=== PATIENT | male | born 1970 | race Caucasian/White ===

== ENCOUNTER 2020-04-01 17:24 | Inpatient (IN) ==
[2020-04-01] MEDS ORDERED: SODIUM CHLORIDE 0.9% 1000ML 1,000 ML IV SCH ×2 (18:00→21:15)
--- NOTE | 2020-04-01 18:10 | Emergency Department Note ---
History of Present Illness General Chief complaint: Hypertension Stated complaint: CHEST PAIN, HIGH BP Time Seen by Provider: 04/01/20 17:42 Source: patient Mode of arrival: ambulatory Limitations: no limitations History of Present Illness Provider complaint: chest pain, hypertension Onset (ago): day(s) 1 Location: chest Radiation: non-radiation Severity: moderate Pain Consistency: + constant Maximum Pain Intensity: 3 Current Pain Intensity: 3 Quality: + constant Relieved By: + none Exacerbated By: + none Associated symptoms: + chest pain and + nausea/vomiting; no cough, no loss of appetite and no shortness of breath Treatments prior to arrival: none This is a 49-year-old male presents the emergency department with concern for chest pain as well as hypertension. Patient denies any prior diagnosis of h ypertension, denies taking any medications for high blood pressure at this time. Patient states he began noticing chest pain yesterday, which was persistent all day today. Patient states he has had chest pain intermittently in the past, although it typically only lasts an hour or so. Patient states last night he did have some accompanying nausea, he denies any recent trouble breathing or cough. Patient denies any URI symptoms or recent known sick contact including any exposure to Covid. Patient states he is a diabetic, states he has had some difficulty controlling his blood sugar readings. Patient denies any trauma or change in activity. Patient states the pain is slightly worse when he is laying on his chest and abdomen. Patient denies any change with exertion. Patient denies any accompanying episodes of diaphoresis. Patient denies any lower extremity edema, difficulty urinating, or change in bowel movements. Patient denies any family history of high blood pressure. Patient denies any recent change in medication. Pt seen during a time of high acuity and national emergency pandemic while wearing PPE. Home Medications Medication Instructions Recorded Confirmed Type Antibiotic Eye Drops 1 drp OPHTHALMIC (EYE) Q3H 04/01/20 04/01/20 History Mulitiple Suppliments 1 dose PO DAILY 04/01/20 04/01/20 History glimepiride 0 mg PO DAILY 04/01/20 04/01/20 History Allergies Allergy/AdvReac Type Severity Reaction Status Date / Time metformin Allergy Severe SEVERE Verified 04/01/20 18:10 DIARRHEA Past Med/Surg History Surgical History No pertinent past surgical history Family History Father Prostate cancer Social History Smoking Status: Never smoker Hx Alcohol Use: Yes marital status: Single current occupational status: employed Feels Safe at Home: Yes Review of Systems See HPI for pertinent positives & negatives. and A total of 10 systems reviewed and were otherwise negative Physical Exam Vital Signs Vital Signs - 24 hr 04/01/20 17:35 04/01/20 17:44 04/01/20 18:00 Temperature 36.4 C L Temperature Source Oral Pulse Rate 94 H 88 86 Pulse Rate from SpO2 Sensor Pulse Rhythm Regular Pulse Strength Normal Respiratory Rate 18 16 16 Respiratory Effort / Characteristics Non-Labored Spontaneous Respiratory Depth Normal Respiratory Pattern Regular Blood Pressure 172/115 H 161/88 H 154/93 H Blood Pressure Mean 134 112 113 Blood Pressure Position Sitting Pulse Oximetry 96 Oxygen Delivery Method Room Air Sepsis Recent Fever Within 48 Hours No Sepsis New/Unexplained Change in Mental Status N/A Sepsis Action Taken by Nursing No Action Required 04/01/20 18:30 04/01/20 19:00 04/01/20 19:27 Temperature Temperature Source Pulse Rate 86 80 91 H Pulse Rate from SpO2 Sensor 87 81 92 H Pulse Rhythm Pulse Strength Respiratory Rate 26 H 26 H 19 Respiratory Effort / Characteristics Respiratory Depth Respiratory Pattern Blood Pressure 172/93 H 147/97 H 172/101 H Blood Pressure Mean 119 113 124 Blood Pressure Position Pulse Oximetry 95 96 96 Oxygen Delivery Method Sepsis Recent Fever Within 48 Hours Sepsis New/Unexplained Change in Mental Status Sepsis Action Taken by Nursing 04/01/20 19:30 04/01/20 19:40 04/01/20 19:46 Temperature Temperature Source Pulse Rate 93 H 93 H 88 Pulse Rate from SpO2 Sensor 94 H Pulse Rhythm Pulse Strength Respiratory Rate 14 18 Respiratory Effort / Characteristics Respiratory Depth Respiratory Pattern Blood Pressure 165/103 H 187/111 H 187/111 H Blood Pressure Mean 123 136 Blood Pressure Position Pulse Oximetry 97 Oxygen Delivery Method Sepsis Recent Fever Within 48 Hours Sepsis New/Unexplained Change in Mental Status Sepsis Action Taken by Nursing 04/01/20 19:50 Temperature Temperature Source Pulse Rate 91 H Pulse Rate from SpO2 Sensor 90 Pulse Rhythm Pulse Strength Respiratory Rate 22 Respiratory Effort / Characteristics Respiratory Depth Respiratory Pattern Blood Pressure 179/108 H Blood Pressure Mean 131 Blood Pressure Position Pulse Oximetry 97 Oxygen Delivery Method Sepsis Recent Fever Within 48 Hours Sepsis New/Unexplained Change in Mental Status Sepsis Action Taken by Nursing GENERAL: alert, well appearing, well nourished, no distress, non-toxic, obese EYE EXAM: normal conjunctiva, PERRL and EOM's grossly intact OROPHARYNX: no exudate, no erythema, lips, buccal mucosa, and tongue normal and mucous membranes are moist NECK: supple, no nuchal rigidity, no adenopathy, non-tender LUNGS: Clear to auscultation. Normal chest wall mechanics, no w/r/r HEART: no murmurs, S1 normal and S2 normal, no reproducible chest wall tenderness with palpation ABDOMEN: abdomen soft, non-tender, normo-active bowel sounds, no masses, no rebound or guarding. BACK: Back is symmetrical on inspection and there is no deformity, no midline tenderness, no CVA tenderness. SKIN: no rashes and no bruising UPPER EXTREMITIES: upper extremities are grossly normal. FROM, nml pulses b/l. LOWER EXTREMITIES: No pitting edema. FROM, nml pulses b/l. NEURO EXAM: Normal sensorium, cranial nerves II-XII grossly intact, normal speech, no gross weakness of arms, no gross weakness of legs. Gross sensation intact. Course Course 1907: Patient updated on results. Patient states he is still having some mild pain although it is improved. 1917: Case discussed with Dr. Sánchez, interventional cardiology. Will make patient a heart alert. Would like heparin 5000 bolus. 1921: Patient updated on plan. Administered Medications Sodium Chloride (Nss 1000ml) 1,000 mls @ 250 mls/hr IV .Q4H HERBERT Stop: 05/01/20 17:59 Last Admin: 04/01/20 18:29 Dose: 250 mls/hr Documented by: [id number] Morphine Sulfate (Morphine Sulfate 2 Mg/Ml Carp) 2 mg IV Q2H PRN PRN Reason: Pain Stop: 04/15/20 19:16 Last Admin: 04/01/20 19:30 Dose: 2 mg Documented by: [id number] Discontinued Medications Famotidine (Famotidine 20mg/5ml Iv Push) 20 mg IV ONE STA Stop: 04/01/20 18:12 Last Admin: 04/01/20 18:30 Dose: 20 mg Documented by: [id number] Fentanyl Citrate (Fentanyl Citrate 100 Mcg/2 Ml Vial) Confirm Administered Dose 100 mcg .ROUTE .STK-MED ONE Stop: 04/01/20 19:51 Last Increment: 04/01/20 20:56 Dose: 50 mcg Documented by: [id number] Heparin Sodium (Porcine) (Heparin Sod (Porcine) 1000 Unit/Ml 10 Ml Vial) 5,000 units IV ONE ONE Stop: 04/01/20 19:21 Last Admin: 04/01/20 19:30 Dose: 5,000 units Documented by: [id number] Cosigned by: [id number] Heparin Sodium (Porcine) (Heparin (Porcine) 1000 Unit/Ml 10 Ml (Boiler Erector Use Only)) Confirm Administered Dose 10,000 units .ROUTE .STK-MED ONE Stop: 04/01/20 19:51 Last Admin: 04/01/20 20:50 Dose: 10,000 units Documented by: [id number] Heparin Sodium (Porcine) (Heparin (Porcine) 1000 Unit/Ml 10 Ml (Boiler Erector Use Only)) Confirm Administered Dose 10,000 units .ROUTE .STK-MED ONE Stop: 04/01/20 20:51 Last Admin: 04/01/20 20:56 Dose: 1,000 units Documented by: [id number] Heparin Sodium/Sodium Chloride (Heparin In Nss Infusion 1000 Unit/500 Ml (2 U/Ml) Bag) Confirm Administered Dose 3,000 units IV .STK-MED ONE Stop: 04/01/20 19:52 Last Admin: 04/01/20 20:50 Dose: 3,000 units Documented by: [id number] Acetaminophen (Ofirmev) 1,000 mg in 100 mls @ 400 mls/hr IV NOW STA Stop: 04/01/20 18:25 Last Infusion: 04/01/20 18:50 Dose: 0 mls/hr Documented by: [id number] Admin: 04/01/20 18:29 Dose: 400 mls/hr Documented by: [id number] Metoprolol Tartrate (Metoprolol Tartrate 1 Mg/Ml Vial) Confirm Administered Dose 5 mg IV .STK-MED ONE Stop: 04/01/20 19:46 Last Admin: 04/01/20 19:46 Dose: 5 mg Documented by: [id number] Midazolam HCl (Midazolam Hcl 1 Mg/Ml 2ml Vial) Confirm Administered Dose 2 mg .ROUTE .STK-MED ONE Stop: 04/01/20 19:52 Last Admin: 04/01/20 20:50 Dose: 2 mg Documented by: [id number] Nicardipine HCl (Nicardipine Hcl Inj 2.5 Mg/Ml 10 Ml Amp) Confirm Administered Dose 25 mg .ROUTE .STK-MED ONE Stop: 04/01/20 19:51 Last Admin: 04/01/20 20:50 Dose: 25 mg Documented by: [id number] Nitroglycerin (Nitroglycerin 2% Ointment 30gm Tube) 1 inch EXT NOW STA Stop: 04/01/20 18:12 Last Admin: 04/01/20 18:29 Dose: 1 inch Documented by: [id number] Nitroglycerin/Dextrose (Nitroglycerin/D5w 100mcg/Ml 20ml Syr) Confirm Administered Dose 2,000 mcg .ROUTE .STK-MED ONE Stop: 04/01/20 19:52 Last Admin: 04/01/20 20:50 Dose: 2,000 mcg Documented by: [id number] Critical Care Time Critical Care Time: Yes Total Critical Care Time: 41 Critical care of 41 min performed to assess and manage high likelihood of life-threatening ACS, involving labs and imaging performed with assessment to evaluate ACS diagnosis with frequent reassessment. This time includes bedside time, treatment discussions with patient/family/consultants, documentation time and excludes procedure time. Medical Decision Making Differential Diagnosis Differential diagnoses includes but is not limited to acute coronary syndrome, myocardial infarction, pericarditis, pulmonary embolus, aortic dissection, pneumonia, pneumothorax, musculoskeletal, shingles, esophageal. Medical Records Attestation: I reviewed the patient's medical records. Home Medications Current Medication List: was personally reviewed by me Laboratory Data Attestation: I reviewed the patient's lab results. Result diagrams: 04/01/20 18:18 04/01/20 18:18 Lab Results 04/01/20 04/01/20 04/01/20 Range/Units 18:18 18:18 18:18 WBC 14.31 H (4.8-10.8) K/uL RBC 5.37 (4.7-6.1) M/uL Hgb 16.4 (14.0-18.0) g/dL Hct 46.5 (42-52) % MCV 86.6 (80-100) fL MCH 30.5 (25-34) pg MCHC 35.3 (32-36) g/dL RDW Std Deviation 40.9 (36.4-46.3) fL RDW Coeff of Anand 12.9 (11.5-14.5) % Plt Count 338 (130-400) K/uL MPV 9.8 (7.4-10.4) fL Immature Gran % (Auto) 0.4 % Neut % (Auto) 68.3 % Lymph % (Auto) 20.3 % Grainger % (Auto) 8.5 % Eos % (Auto) 2.0 % Baso % (Auto) 0.5 % Neut # (Auto) 9.77 H (1.4-6.5) K/uL Lymph # (Auto) 2.91 (1.2-3.4) K/uL Grainger # (Auto) 1.21 H (0.11-0.59) K/uL Eos # (Auto) 0.29 (0-0.5) K/uL Baso # (Auto) 0.07 (0-0.2) K/uL Immature Gran # (Auto) 0.06 H (0.00-0.02) K/uL PT 10.9 (9.0-12.0) Seconds INR 1.0 (0.9-1.1) D-Dimer < 190 (0-500) ug/L FEU Sodium 137 (136-145) mmol/L Potassium 4.5 (3.5-5.1) mmol/L Chloride 103 (98-107) mmol/L Carbon Dioxide 28 (21-32) mmol/L Anion Gap 6.0 (3-11) BUN 15 (7-18) mg/dl Creatinine 0.84 (0.6-1.4) mg/dl Est Cr Clr Drug Dosing 137.0 ml/min Est GFR ( Amer) 117.5 Est GFR (Non-Af Amer) 101.4 BUN/Creatinine Ratio 17.6 (10-20) Glucose 253 H (70-99) mg/dl Calcium 9.0 (8.5-10.1) mg/dl Magnesium 2.1 (1.8-2.4) mg/dl Total Bilirubin 0.8 (0.2-1) mg/dl AST 124 H (15-37) U/L ALT 49 (12-78) U/L Alkaline Phosphatase 101 (45-117) U/L Troponin I 35.400 H* (0-0.045) ng/ml NT-Pro-B Natriuret Pep 594 (0-900) pg/ml Total Protein 7.6 (6.4-8.2) gm/dl Albumin 4.1 (3.4-5.0) gm/dl Globulin 3.5 (2.5-4.0) gm/dl Albumin/Globulin Ratio 1.2 (0.9-2) Triglycerides 542 H (0-150) mg/dl Cholesterol 207 H (0-200) mg/dl LDL Cholesterol, Calc mg/dl VLDL Cholesterol, Calc mg/dl HDL Cholesterol 29 mg/dl Cholesterol/HDL Ratio 7 Lipase 98 (73-393) U/L TSH 1.740 (0.300-4.500) uIu/ml Specimen Hemolysis COVID-19 Eval Order SARS-CoV-2, RNA, NAAT (NEGATIVE) 04/01/20 04/01/20 Range/Units 19:34 19:34 WBC (4.8-10.8) K/uL RBC (4.7-6.1) M/uL Hgb (14.0-18.0) g/dL Hct (42-52) % MCV (80-100) fL MCH (25-34) pg MCHC (32-36) g/dL RDW Std Deviation (36.4-46.3) fL RDW Coeff of Anand (11.5-14.5) % Plt Count (130-400) K/uL MPV (7.4-10.4) fL Immature Gran % (Auto) % Neut % (Auto) % Lymph % (Auto) % Grainger % (Auto) % Eos % (Auto) % Baso % (Auto) % Neut # (Auto) (1.4-6.5) K/uL Lymph # (Auto) (1.2-3.4) K/uL Grainger # (Auto) (0.11-0.59) K/uL Eos # (Auto) (0-0.5) K/uL Baso # (Auto) (0-0.2) K/uL Immature Gran # (Auto) (0.00-0.02) K/uL PT (9.0-12.0) Seconds INR (0.9-1.1) D-Dimer (0-500) ug/L FEU Sodium (136-145) mmol/L Potassium (3.5-5.1) mmol/L Chloride (98-107) mmol/L Carbon Dioxide (21-32) mmol/L Anion Gap (3-11) BUN (7-18) mg/dl Creatinine (0.6-1.4) mg/dl Est Cr Clr Drug Dosing ml/min Est GFR ( Amer) Est GFR (Non-Af Amer) BUN/Creatinine Ratio (10-20) Glucose (70-99) mg/dl Calcium (8.5-10.1) mg/dl Magnesium (1.8-2.4) mg/dl Total Bilirubin (0.2-1) mg/dl AST (15-37) U/L ALT (12-78) U/L Alkaline Phosphatase (45-117) U/L Troponin I (0-0.045) ng/ml NT-Pro-B Natriuret Pep (0-900) pg/ml Total Protein (6.4-8.2) gm/dl Albumin (3.4-5.0) gm/dl Globulin (2.5-4.0) gm/dl Albumin/Globulin Ratio (0.9-2) Triglycerides (0-150) mg/dl Cholesterol (0-200) mg/dl LDL Cholesterol, Calc mg/dl VLDL Cholesterol, Calc mg/dl HDL Cholesterol mg/dl Cholesterol/HDL Ratio Lipase (73-393) U/L TSH (0.300-4.500) uIu/ml Specimen Hemolysis COVID-19 Eval Order Covid19 [facility] SARS-CoV-2, RNA, NAAT NEGATIVE (NEGATIVE) Imaging Data Radiologist's Impression: XR chest 1V portable HISTORY: 49 years-old Male chest pain acute atypical chest pain COMPARISON: None TECHNIQUE: Portable AP view of the chest FINDINGS: Cardiac silhouette is enlarged. No pneumothorax, large pleural effusion or overt pulmonary edema. No airspace consolidation typical for pneumonia. Minimal linear bibasilar densities. Bones appear grossly intact. IMPRESSION: Cardiomegaly with minimal bibasilar atelectasis. ACT 112: Negative or not required by law. The above report was generated using voice recognition software. It may contain grammatical, syntax or spelling errors. Electronically signed by: Ángel Solitario M.D. 04/01/2020 7:05 PM ECG Data Attestation: I personally reviewed and interpreted this ECG as follows: Indication: + chest pain Rate (beats per minute): 89 Rhythm: + normal sinus ECG Intervals/blocks: + Normal QRS and + Normal QT ECG [place]: + Left axis deviation ECG ST segments: + ST depression (1, aVL, V2) and + ST elevation (III, aVF 1 mm) Blood Pressure Blood Pressure Findings: Elevated blood pressure Blood Pressure Disposition: further management by hospitalist KITTY Narrative This is a 49-year-old male with no prior history of coronary artery disease who presents due to concern for persistent chest pain and elevated blood pressure. Patient states he has a history of intermittent chest pain, however today he checked his blood pressure due to the persistence of pain and found a markedly elevated blood pressure reading. He contacted friend of his who suggested he come to the emergency room. Patient states he has not had any prior cardiac work-up. Patient states he is a diabetic, no prior history of hypertension. Patient's EKG here mildly abnormal although not convincing for immediate heart alert given chronicity of symptoms. Patient did not appear to be in any distre ss, was hypertensive although hemodynamically stable. Labs are drawn and sent, and I attempted to investigate for any prior EKG for comparative purposes. No old EKG could be found. Charge nurse and may be aware of an abnormal troponin level of 35. Upon discussion with the patient, after administration of Tylenol and nitro he still had some mild chest discomfort, I contacted Dr. Sánchez, interventional cardiology to discuss the case for likely emergent cardiac cath. Dr. Sánchez agreed with the plan, and a heart alert was called. Patient was given additional morphine to help with the pain. Dr. Sánchez also requested heparin bolus. Patient was made aware of all results and was in agreement with plan. Patient was found to have elevated cholesterol and triglycerides in addition, leukocytosis, as well as an elevated AST. Some of this may be related to the underlying ACS, the AST may also be related to his diabetic meds. Patient was made aware of the results, additional Boiler Erector and ICU team came to bedside on admission and preparations were made. Dr. Sánchez came to bedside as well. I also discussed the case with Dr. Doll, hospitalist in addition. An order was placed for continuous cardiac monitoring. The monitor shows a rate of 83_ with _normal sinus_ rhythm. Impression & Plan Chest pain, Hypertension, ACS (acute coronary syndrome), Hyperglycemia Discharge Plan Visit Data Chief Complaint: Hypertension Stated Complaint: CHEST PAIN, HIGH BP ED Provider: Jill Lincoln Discharge Problem: Chest pain, Hypertension, ACS (acute coronary syndrome), Hyperglycemia Patient Disposition: Still a Patient Discharge Instructions Interventions: ED Discharge Assessment Last Done: 04/01/20 20:05 Discharge Problem: Chest pain Qualifiers: Chest pain type: chest pain due to myocardial ischemia Ischemic chest pain t ype: unspecified angina pectoris type Qualified Code(s): I25.9 - Chronic ischemic heart disease, unspecified Hypertension Qualifiers: Hypertension type: essential hypertension Qualified Code(s): I10 - Essential (primary) hypertension
[2020-04-01] MEDS ORDERED: NITROGLYCERIN 2% OINTMENT 30GM TUBE EXT STA (18:11)
[2020-04-01] MEDS ORDERED: ACETAMINOPHEN 1,000 MG/100 ML VIAL IV STA (18:11)
[2020-04-01] MEDS ORDERED: FAMOTIDINE 20MG/5ML IV PUSH IV STA (18:11)
[2020-04-01 18:36] LABS: Basophils # (auto) 0.07 K/uL (0-0.2); Basophils % (auto) 0.5 %; Eosinophils # (auto) 0.29 K/uL (0-0.5); Hematocrit (blood only) 46.5 % (42-52); Hemoglobin 16.4 g/dL (14.0-18.0); Immature Granulocytes # (auto) 0.06 K/uL (0.00-0.02); Immature Granulocytes % (auto) 0.4 %; Lymphocytes # (auto) 2.91 K/uL (1.2-3.4); Lymphocytes % (auto) 20.3 %; Mean Corpuscular Hemoglobin 30.5 pg (25-34); Mean Corpuscular Hgb Conc 35.3 g/dL (32-36); Mean Corpuscular Volume 86.6 fL (80-100); Mean Platelet Volume 9.8 fL (7.4-10.4); Monocytes # (auto) 1.21 K/uL (0.11-0.59); Monocytes % (auto) 8.5 %; Neutrophils # (auto) 9.77 K/uL (1.4-6.5); Neutrophils % (auto) 68.3 %; Platelet Count 338 K/uL (130-400); RDW Coefficient of Variation 12.9 % (11.5-14.5); RDW Standard Deviation 40.9 fL (36.4-46.3); Red Blood Count 5.37 M/uL (4.7-6.1); White Blood Count 14.31 K/uL (4.8-10.8)
[2020-04-01 18:46] LABS: D Dimer < 190 ug/L FEU (0-500); Prothrombin Time 10.9 Seconds (9.0-12.0)
[2020-04-01 19:02] LABS: Albumin Level 4.1 gm/dl (3.4-5.0); BUN Creatinine Ratio 17.6 (10-20); Est GFR (African American) 117.5; Est GFR (Non-African American) 101.4; Magnesium 2.1 mg/dl (1.8-2.4); Potassium 4.5 mmol/L (3.5-5.1)
[2020-04-01 19:06] LABS: Bilirubin,Total 0.8 mg/dl (0.2-1); Globulin 3.5 gm/dl (2.5-4.0); Thyroid Stimulating Hormone 1.74 uIu/ml (0.300-4.500); Total Protein 7.6 gm/dl (6.4-8.2); Troponin I 35.4 ng/ml (0-0.045)
--- NOTE | 2020-04-01 19:06 | XRay Report ---
XR chest 1V portable HISTORY: 49 years-old Male chest pain acute atypical chest pain COMPARISON: None TECHNIQUE: Portable AP view of the chest FINDINGS: Cardiac silhouette is enlarged. No pneumothorax, large pleural effusion or overt pulmonary edema. No airspace consolidation typical for pneumonia. Minimal linear bibasilar densities. Bones appear grossl y intact. IMPRESSION: Cardiomegaly with minimal bibasilar atelectasis. ACT 112: Negative or not required by law. The above report was generated using voice recognition software. It may contain grammatical, syntax o r spelling errors. Electronically signed by: Ángel Solitario M.D. 04/01/2020 7:05 PM
[2020-04-01 19:07] LABS: Albumin Globulin Ratio 1.2 (0.9-2)
[2020-04-01] MEDS ORDERED: MoRPHine SULFATE 2 MG/ML CARP IV PRN (19:17)
[2020-04-01] MEDS ORDERED: HEPARIN SOD (PORCINE) 1000 UNIT/ML 10 ML VIAL IV ONE (19:20)
[2020-04-01] MEDS ORDERED: METOPROLOL TARTRATE 1 MG/ML VIAL IV STA (19:41)
[2020-04-01] MEDS ORDERED: MoRPHine SULFATE 4 MG/ML 1 ML CARP\\VIAL IV STA (19:42)
[2020-04-01] MEDS ORDERED: METOPROLOL TARTRATE 1 MG/ML VIAL IV ONE (19:45)
[2020-04-01] MEDS ORDERED: NSS + 20MEQ KCL 20 MEQ/1,000 ML BAG IV SCH (19:45)
[2020-04-01] MEDS ORDERED: HEPARIN (PORCINE) 1000 UNIT/ML 10 ML (CATH LAB USE ONLY) ONE ×2 (19:50→20:50)
[2020-04-01] MEDS ORDERED: niCARdipine HCL INJ 2.5 MG/ML 10 ML AMP ONE (19:50)
[2020-04-01] MEDS ORDERED: fentaNYL citrate 100 MCG/2 ML VIAL ONE (19:50)
[2020-04-01] MEDS ORDERED: NITROGLYCERIN/D5W 100MCG/ML 20ML SYR ONE (19:51)
[2020-04-01] MEDS ORDERED: MIDAZOLAM HCL 1 MG/ML 2ML VIAL ONE ×2 (19:51→20:40)
--- NOTE | 2020-04-01 20:06 | Pre Anesthesia Assessment ---
Date of Service April 01, 2020 Pre Sedation Assessment Vital Signs Temp Pulse Resp BP Pulse Ox 04/01/20 19:50 91 H 22 179/108 H 97 04/01/20 19:46 88 187/111 H 04/01/20 19:40 93 H 18 187/111 H 97 04/01/20 19:30 93 H 14 165/103 H 04/01/20 19:27 91 H 19 172/101 H 96 04/01/20 19:00 80 26 H 147/97 H 96 04/01/20 18:30 86 26 H 172/93 H 95 04/01/20 18:00 86 16 154/93 H 04/01/20 17:44 88 16 161/88 H 04/01/20 17:35 97.5 F L 94 H 18 172/115 H 96 Cardiovascular RRR, no murmur, no edema Respiratory normal respiratory effort, lungs clear to auscultation Pre-Sedation Airway Assessment Smoking Status: Never smoker Hx Sleep Apnea: No Hx Difficult Intubation: No Short, Thick Neck: No Thyromental Distance: > or= 3.5 Finger Breadths Oral Cavity: + WNL Mallampati Class: III ASA: ASA4 Procedure Planning Contraindications for Sedation: none Current Medications Reviewed: Yes Notes The planned sedation has been discussed with the patient. Informed Consent was obtained. I have identified the patient, determined the appropriateness of sedation and have assessed the patient immediately prior to the procedure. All medicine(s) and interventions are by my order.
--- NOTE | 2020-04-01 20:10 | Cardiology Consultation ---
Date of Consultation April 01, 2020 Assessment & Plan (1) Acute MO: Presentation consistent with high risk NSTEMI with active ongoing chest and recommend proceeding with emergent cardiac catheterization and likely PCI. No apparent contraindications to procedure. Discussed risks, benefits, alternatives of procedure with patient and they are willing to proceed. Given IV heparin in the ED. Further recommendations pending findings of coronary angiography. History of Present Illness History of Present Illness 49-year-old male here with acute chest pain, troponin elevation and ECG findings consistent with NSTEMI. Patient seen emergently in the ED after heart alert activated after troponin resulted at 35. No prior cardiac history. Cardiac risk factors include type 2 diabetes on oral therapy and a family history of CAD with a father who had an MO at 58. Chest pain began around 10 PM last night, 20 hours ago. Describes substernal pain with associated nausea. Noted his blood pressures were high up into the 200s. Denies similar symptoms in the past. Pain somewhat better with ibuprofen last night and was able to sleep several hours but pain has persisted all day today leading him to ED. Chest pain currently 2 out of 10 after aspirin, nitro, morphine. Hemodynamically stable. EKG showed subtle inferior ST elevations. Allergies Allergy/AdvReac Type Severity Reaction Status Date / Time metformin Allergy Severe SEVERE Verified 04/01/20 18:10 DIARRHEA Home Medications Medication Instructions Recorded Confirmed Type Antibiotic Eye Drops 1 drp OPHTHALMIC (EYE) Q3H 04/01/20 04/01/20 History Mulitiple Suppliments 1 dose PO DAILY 04/01/20 04/01/20 History glimepiride 0 mg PO DAILY 04/01/20 04/01/20 History Patient History Surgical History No pertinent past surgical history Family History Father Prostate cancer Social History Smoking Status: Never smoker Hx Alcohol Use: Yes marital status: Single current occupational status: employed Feels Safe at Home: Yes Review of Systems Review of Systems: All systems reviewed & are unremarkable except as noted in HPI & below Physical Exam Physical Exam: General: Comfortable, no acute distress HEENT: Sclerae anicteric, mucous membranes moist Lungs: Clear to auscultation bilaterally Cardiac: Regular rate and rhythm, no murmurs Abdomen: Soft, nontender Extremities: Warm, well perfused, no edema. 2+ radial pulses Skin: No rashes or lesions. Neuro: Nonfocal Psych: Alert orient x3, normal affect and mood Results & Data ([facility]) Vital Signs (Past 12 Hours) Vital Signs Temp Pulse Resp BP Pulse Ox 04/01/20 19:50 91 H 22 179/108 H 97 04/01/20 19:46 88 187/111 H 04/01/20 19:40 93 H 18 187/111 H 97 04/01/20 19:30 93 H 14 165/103 H 04/01/20 19:27 91 H 19 172/101 H 96 04/01/20 19:00 80 26 H 147/97 H 96 04/01/20 18:30 86 26 H 172/93 H 95 04/01/20 18:00 86 16 154/93 H 04/01/20 17:44 88 16 161/88 H 04/01/20 17:35 97.5 F L 94 H 18 172/115 H 96 PG Care Time/CCT Total # of Minutes Spent Total Time Spent with Patient: Total time spent is greater than 50% in coordination of care (as documented) at patient's floor/unit and/or counseling patient: Coding Level of Care Code 91373 Inpt Consult Level 5 Diagnoses Acute MO I21.9
[2020-04-01] MEDS ORDERED: CLOPIDOGREL BISULFATE 300 MG TAB ONE (21:00)
--- NOTE | 2020-04-01 21:13 | Post Anesthesia Assessment ---
Date of Service April 01, 2020 Post Sedation Assessment Vital Signs Temp Pulse Resp BP Pulse Ox 04/01/20 19:50 91 H 22 179/108 H 97 04/01/20 19:46 88 187/111 H 04/01/20 19:40 93 H 18 187/111 H 97 04/01/20 19:30 93 H 14 165/103 H 04/01/20 19:27 91 H 19 172/101 H 96 04/01/20 19:00 80 26 H 147/97 H 96 04/01/20 18:30 86 26 H 172/93 H 95 04/01/20 18:00 86 16 154/93 H 04/01/20 17:44 88 16 161/88 H 04/01/20 17:35 97.5 F L 94 H 18 172/115 H 96 Recovery Score Activity: Moves 4 extremities Respiration: Deep Breath/Cough Circulation: +/-20% PreAnes Value Consciousness: Fully Awake Oxygen Saturation: O2 needed for >90% Discharge Sedation Level of Care: Fast Track Phase II Post Sedation Plan On clinical assessment, the patient appears to have tolerated the sedation without complications. Patient is recovering as anticipated. Patient will continue to be monitored by nursing and may be discharged when sedation discharge criteria are met per below protocol. Upon Completions of procedure up to 15 minutes continue every 5 minute vital signs and the P.A.R. score; then discharge to a Phase I or Fast Track to Phase II per the following guidelines: * Discharge Patient to appropriate Phase II area if PAR is 8 or greater or return to pre- procedure baseline. The post - procedure orders will be as directed. * If PAR score is less than 8 or not return to pre-procedure baseline then patient will follow Phase I monitoring till PAR is reached for Phase II. The Phase I may be done in procedure room or may call to secure a Phase I area. * If naloxone or flumazenil are used for reversal, hold in Phase I for continued monitoring from when last reversal dose was given for a minimum of 60 minutes or longer pending the nurse and/or physician discretion of patient condition before discharge to Phase II. Please call the Sedation Physician to re-evaluate and complete post-note for discharge to Phase II area. Do NOT discharge from procedure sedation or Phase 1 until post- sedation evaluation note is complete by procedure /sedation MD Sedation Discharge Instructions to be given to the patient at discharge to home.
[2020-04-01] MEDS ORDERED: ONDANSETRON INJ 2 MG/ML 2 ML VIAL IV PRN (21:14)
[2020-04-01] MEDS ORDERED: ACETAMINOPHEN 325 MG TAB PO PRN (21:14)
[2020-04-01] MEDS ORDERED: NITROGLYCERIN SL 0.4 MG/TAB TAB SL PRN (21:14)
--- NOTE | 2020-04-01 21:44 | Cardiac Catheterization ---
[facility] Data: Machine Stitcher Cardiac Status Clinical evaluation leading to the procedure CAD Presenation: Non STEMI Anginal Classification: CCS IV Heart Failure: No Cardiogenic Shock within 24 Hours: No Cardiac Arrest within 24 Hours: No Imaging Studies Past 6 Months: No Stress Studies Past 6 Months: No Diagnostic Physicians Name: Zelalem Sánchez MD Status: Emergency Closure Device Percutaneous Entry Location: Radial Closure Device: Radial Band Recommendations: PCI without planned CABG PCI Indication: PCI for high risk Non-CHIVO Lesion Segment Name: R PAV Culprit Artery: Yes Stenosis Prior to Rx (%): 100 Chronic Total Occlusion: No IVUS: No FFR: No Pre-Procedure SALAZAR Flow: 0 Previously Treated Lesion: No Lesion Complexity: Non-High/Non-C Lesion Length (mm): 25 Thrombus Present: Yes Bifurcation Lesion: No Guidewire Across Lesion: Stenosis Post-Procedure (%): 0 Post-Procedure SALAZAR Flow: 3 Devices(s) Deployed: Yes Yes Intraprocedure Events Significant Disection: No Perforation: No Cardiac Cath Procedure Full Procedure Date April 01, 2020 Pre-Procedure Diagnosis Pre-Procedure Diagnosis: Non STEMI AUC Score AUC Score: 9 Post-Procedure Diagnosis Post-Procedure Diagnosis: Severe CAD, Successful PCI and Normal Intracardiac Pressures Procedure(s) Performed Procedure(s) Performed: Coronary Angiography, Left Heart Cath and Drug Eluting Stent Time Buyer Zelalem Sánchez MD Bridal Stylist Sales Consultant(s) Gisela Estimated Blood Loss Estimated Blood Loss: 15 Medication(s) Medication(s): Fentanyl, Heparin, Lidocaine 1%, Nicardipine, Nitroglycerin and Versed Medication(s): Ticagrelor Summary of Findings Indication: STEMI/Heart Alert Access: 6 Fr slender right radial artery Catheters: [place], JR4 guide Findings: LM -medium caliber, angiographically normal LAD -medium caliber, 50% proximal disease, 90% mid segment disease just after takeoff of first septal, distal vessel tapers to the apex without significant disease. High D1 70% ostial Circumflex -medium caliber, 40% proximal, 30-40% mid, 40% proximal large OM 3. RCA -dominant, medium caliber, 30% proximal disease, 100% acute right posterior AV branch occlusion just after takeoff of of large PDA. LVEDP -16 -- PCI -- Antithrombotic therapy: Heparin, ticagrelor Procedure: RCA cannulated with JR4 guide Whisper wire passed across occlusion into distal PLB Injection through [id number] balloon confirmed distal intraluminal position Posterior AV branch occlusion predilated with 2.0 compliant balloon Dilated lesion stented with 2.5 x 30 mm Nuevo drug-eluting stent placed just after takeoff of PDA. Stent post-dilated with 2.75 noncompliant balloon IC vasodilators administered for spasm Post procedure SALAZAR 3 flow, stent well expanded with minimal residual stenosis and no apparent cardiac complications. Arterial Closure: TR band Summary: 1. Acute 100% occlusion of right posterior AV branch immediately after takeoff of PDA 2. Severe non-culprit coronary artery disease -50% proximal LAD, 90% mid LAD. High D1 70% ostial 40% proximal, mid circumflex and proximal OM 3 3. Normal intracardiac filling pressure 4. Successful PCI of Right posterior AV branch occlusion with single drug- eluting stent (2.5 x 30 mm Al; postdilated with 2.75 NC). Recommendations: Admit to PCU for continued monitoring Loaded with ticagrelor 180 mg in Machine Stitcher Continue dual-antiplatelet therapy for at least 1 year. Trend troponins until peak, Check Echo Uptitrate beta-omer/SHANNON as BP allows High-dose statin Consult cardiac Rehab Plan for staged PCI of LAD possibly tomorrow if renal function stable Hemodynamics Rest Ao:: 147/92/123 Final Ao: 146/98/121 LV: 130/16 Recommendations Recommendations: PCI without planned CABG Specimens Specimens: None Radiation Exposure (mGy) 2762 Contrast (mls) 100 Fluids (cc crystalloids) Fluids (cc crystalloids): 85 Drains Drains: none Anesthesia moderate Procedural Complication(s) None Disposition PCU I attest to the content of the Intraoperative Record and any orders documented therein. Any exceptions are noted below. [facility] Card Cath Procedure Codes Cardiac Catheterization Procedure 1: Cardiovascular Cath Procedures: 85803 Coronaries and LHC (+/-LV) Moderate Sedation Procedure 1: Sedation/Anesthesia: 30708 Mod Sedation by the same physician;Init15 Min Child Age 5 & Up Procedure 2: Sedation/Anesthesia: 14888 Mod Sedation by the same physician; Ea Addition al15 Minutes Stenting Procedure 1: Cardiovascular Stent Procedures: 68737 Perc transluminal revascularization of acute sub/total occl, aMI PG Care Time/CCT Total # of Minutes Spent Total Time Spent with Patient: Total time spent is greater than 50% in coordination of care (as documented) at patient's floor/unit and/or counseling patient:
[2020-04-01 21:55] LABS: Basophils % (auto) 0.6 %; Eosinophils # (auto) 0.33 K/uL (0-0.5); Eosinophils % (auto) 1.8 %; Hemoglobin 14.6 g/dL (14.0-18.0); Immature Granulocytes # (auto) 0.08 K/uL (0.00-0.02); Immature Granulocytes % (auto) 0.4 %; Lymphocytes # (auto) 3.69 K/uL (1.2-3.4); Lymphocytes % (auto) 20.4 %; Mean Corpuscular Hemoglobin 29.5 pg (25-34); Mean Corpuscular Volume 86.9 fL (80-100); Mean Platelet Volume 9.7 fL (7.4-10.4); Monocytes # (auto) 1.26 K/uL (0.11-0.59); Neutrophils # (auto) 12.64 K/uL (1.4-6.5); Neutrophils % (auto) 69.8 %; Platelet Count 303 K/uL (130-400); RDW Coefficient of Variation 12.8 % (11.5-14.5); RDW Standard Deviation 40.8 fL (36.4-46.3); Red Blood Count 4.95 M/uL (4.7-6.1)
[2020-04-01] MEDS ORDERED: DC ALL PREVIOUSLY ORDERED DIABETES MEDS ONE (22:01)
[2020-04-01] MEDS ORDERED: GLUCOSE 10 TABS/TUBE PO PRN (22:01)
[2020-04-01] MEDS ORDERED: CARBOHYDRATES FOR HYPOGLYCEMIA PO PRN (22:01)
[2020-04-01] MEDS ORDERED: DEXTROSE 50% 50 ML SYRINGE IV PRN (22:01)
[2020-04-01] MEDS ORDERED: GLUCOSE 40% GEL 15 GM TUBE PO PRN (22:01)
[2020-04-01] MEDS ORDERED: GLUCAGON FOR INJ 1 MG VIAL SQ PRN (22:01)
[2020-04-01] MEDS ORDERED: POLYETHYLENE (MIRALAX) 17 GM PACK PO PRN (22:01)
--- NOTE | 2020-04-01 22:09 | History & Physical Report ---
Date of Service April 01, 2020 Assessment & Plan (1) NSTEMI (non-ST elevated myocardial infarction): 49 yo M PMHx DM2 admitted for NSTEMI now status post PCI x1. NSTEMI: -On arrival with substernal chest pain without associated radiation to arm or jaw. -Noted to have EKG without ST changes, elevated troponin to 35. Will trend serial troponins to peak. -Heart alert called, underwent cardiac catheterization by Dr. Sánchez which revealed multivessel disease, most of note 100% occlusion o right posterior AV branch immediately after takeoff of PDA, as well as severe non-culprit coronary artery disease (specifically, 90% stenosis of mid LAD). TY x1 placed at PDA takeoff. -Patient was started on SHANNON, beta-omer, high intensity statin, DAPT. -A1c with morning labs. Lipid panel performed on admission lab work showed TG 542, total cholesterol 207, LDL unable to be calculated secondary to TG level. -Echo a.m. N.p.o. starting now. -Plan for staged PCI LAD possibly tomorrow pending renal function. -Telemetry for continuous cardiac monitoring. -Cardiac rehabilitation consult placed. DM2: -History of, on glimepiride. -BSG on admission 250. A1c with morning labs, suspect inadequate control. -Hold glimepiride for now, SSI while admitted. DM2 diet when no longer NPO. HTN: -On arrival with elevated BP 170s/110s, now normotensive status post PCI and Lopressor 5 mg IV x1. -Continue lisinopril 5 mg daily, metoprolol tartrate 25 mg twice daily, titrate these up as BP allows. Leukocytosis: -Likely reactive in the setting of A. fib with RVR. -No other laboratory or exam findings suggestive of infection. -CBC in a.m. CODE STATUS: Full code FEN GI: N.p.o. for possible staged PCI tomorrow, NSS at 100 mL/hr DVT prophylaxis: Ticagrelor 90 mg twice daily Dispo: PCU telemetry for continuous cardiac monitoring, n.p.o. for possible PCI to LAD tomorrow (2) Hypertension: (3) Diabetes: (4) Leukocytosis: Admission and Anticipated Discharge Date Admission Date: April 01, 2020 History of Present Illness Chief Complaint: NSTEMI Primary Care Provider: MICHELLE Damon 49 yo M PMHx DM2 presents for chest pain. Per patient he started having aching severe chest pain at 10pm last evening, could not get comfortable, but it went away. It came back this AM and after it had not gone away after an hour he checked his BP and noted himself to have diastolic BP over 100. Because of this he decided to be evaluated in ER. In ER he was noted to have EKG without ST elevations, initial troponin 35, HTN to 170/110. He received Lopressor 5mg IV x1, nitro, high dose aspirin, and morphine x2 with significant relief (though not resolution) of his pain. Heart alert called, and taken to lab aide emergently by Dr. Sánchez. There he was noted to have 100% occlusion of right posterior AV branch immediately after takeoff of PDA, as well as severe non-culprit coronary artery disease (specifically, 90% stenosis of mid LAD). TY x1 placed at PDA takeoff, with plan for staged PCI of LAD. On my exam (which occurred prior to PCI, but after morphine and Lopressor) pat ient reported significant improvement in pain, and no complaints of SOB, sweating, abdominal pain, nausea, dizziness, headache. Allergies Allergy/AdvReac Type Severity Reaction Status Date / Time metformin Allergy Severe SEVERE Verified 04/01/20 18:10 DIARRHEA Home Medications Medication Instructions Recorded Confirmed Type Antibiotic Eye Drops 1 drp OPHTHALMIC (EYE) Q3H 04/01/20 04/01/20 History Mulitiple Suppliments 1 dose PO DAILY 04/01/20 04/01/20 History glimepiride 0 mg PO DAILY 04/01/20 04/01/20 History aspirin 81 mg PO QAM 30 Days #30 tab 04/03/20 Rx atorvastatin 80 mg PO QAM 30 Days #60 tab 04/03/20 Rx lisinopril [Zestril] 5 mg PO QAM 30 Days #30 tab 04/03/20 Rx metoprolol tartrate 25 mg PO BID 30 Days #60 tab 04/03/20 Rx nitroglycerin [Nitrostat] 0.4 mg SUBLINGUAL UD PRN 30 Days 04/03/20 Rx #30 tab ticagrelor [Brilinta] 90 mg PO BID 30 Days #60 tab 04/03/20 Rx Past Med/Surg History Surgical History No pertinent past surgical history Family History (Updated 04/01/20 @ 22:42 by Aura Ballard DO) Father Prostate cancer Heart disease Social History Smoking Status: Former smoker Cigarettes Per Day: 20; Hx Alcohol Use: Yes Alcohol type: beer and hard liquor Hx Substance Use: No Preferred Language: Serbian Communication Ability: Effective Magnetic Resonance Imaging Coordinator Required: No Beliefs That Will Affect Care: None marital status: Single Current Living Situation: Alone current occupational status: employed Feels Safe at Home: Yes Assistive Devices: None Review of Systems Review of Systems: All systems reviewed & are unremarkable except as noted in HPI & below Constitutional: no fever, no chills and no malaise Respiratory: no cough and no dyspnea Cardiovascular: + chest pain (mild improved since arrival to ER); no palpitations and no edema Gastrointestinal: no abdominal pain, no constipation and no diarrhea/loose stools Physical Exam Constitutional: WD/WN, vitals as above Eyes: PERRL, conjunctivae normal, anicteric sclerae ENMT: external ear and nose normal, oropharynx normal Neck: normal visual inspection Respiratory: normal respiratory effort, lungs clear to auscultation Cardiovascular: RRR, no murmur, no edema Gastrointestinal (Abdomen): normal bowel sounds, soft, nontender, no hepatosplenomegaly Musculoskeletal: No cyanosis or clubbing Skin: no rashes, warm and dry Neurologic: AAOx3, normal speech. PERRL. Bilateral UE, LE, and face without sensory or motor deficits. No tremor. Psychiatric: A+Ox3, euthymic affect Results & Data Results & Data ([facility]) Vital Signs (Past 12 Hours) Vital Signs Temp Pulse Pulse Resp BP BP Pulse Ox 04/01/20 21:31 36.9 C 72 18 110/74 94 04/01/20 21:26 36.9 C 75 18 129/73 94 04/01/20 19:50 91 H 22 179/108 H 97 04/01/20 19:46 88 187/111 H 04/01/20 19:40 93 H 18 187/111 H 97 04/01/20 19:30 93 H 14 165/103 H 04/01/20 19:27 91 H 19 172/101 H 96 04/01/20 19:00 80 26 H 147/97 H 96 04/01/20 18:30 86 26 H 172/93 H 95 04/01/20 18:00 86 16 154/93 H 04/01/20 17:44 88 16 161/88 H 04/01/20 17:35 36.4 C L 94 H 18 172/115 H 96 Code Status & VTE Plan VTE Prophylaxis Plan VTE Prophylaxis will be ordered: Yes Supervising Physician Co-Signing Physician Notes Attending addendum: I have physically seen this patient, have supervised the medical residents activities, and agree with the H&P unless as otherwise noted. Assessment and Plan: Non-STEMI- The patient will be admitted to telemetry for serial cardiac enzymes, serial EKG's, cardiac rhythm monitoring and a 2-D echocardiogram with Dopplers. Troponin upon admission 35 Patient made a heart alert in the ED He was taken to the Air Pollution Analyst by Dr. Sánchez with results as noted. Continue meds as ordered per cardiology Diabetes mellitus- Hold glimepiride. Placed on Accu-Cheks before meals and at bedtime with NovoLog coverage per scale Remaining orders and notations as noted Resident Activity Tracking Resident Involvement: Resident Care Provided Care Provided: Adult Hospital Medicine (1) Hypertension Hypertension type: essential hypertension Qualified Code(s): I10 - Essential (primary) hypertension
[2020-04-01 22:15] LABS: Calcium 8.4 mg/dl (8.5-10.1); Creatinine Clr Calc Pharmacy 174.4 ml/min; Est GFR (African American) 129.7; Est GFR (Non-African American) 111.9
[2020-04-01] MEDS: INSULIN ASPART 100 UNITS/ML 3 ML PEN SC SCH (22:25)
[2020-04-01] MEDS: METOPROLOL TARTRATE 25 MG TAB PO SCH (22:27)
--- NOTE | 2020-04-02 08:02 | Hospitalist Progress Note ---
Date of Service April 02, 2020 Assessment & Plan (1) Acute LA: Patient is a 49 year old male with PMHx DM2 that presented initially with chest pain of 20 hours duration that was centralized in location, found to have an elevated troponin of 35 on admission at which time a heart alert was a ctivated and patient underwent PCI x1 of his R posterior AV branch and transferred to PCU for monitoring. STEMI -Second EKG showing ST-T wave elevations of III and AVF with reciprocal change in St depression of leads I and aVL. -Troponin on admission 35 --> 60 --> 27 -In ED a heart alert was called, given Tylenol, nitro, IV morphine, and started on a heparin gtt with bolus -Patient underwent PCI x1 of R posterior AV branch on 04/01/20 -Of note patient had 50% proximal LAD, 90% mid LAD occlusion. -Plans for staged PCI of LAD later this afternoon -Echo with EF 60-65% with mild hypokinesis of mid inferior and inferolateral portions of the heart -Continue Dual-Antiplatelet therapy x1 year, ASA 81mg QD and Ticagrelor 90mg PO BID -Sublingual Nitro PRN -Morphine PRN pain -O2 PRN, patient not currently requiring -High Dose Statin Atorvastatin 80mg QAM -Metoprolol Tartrate 25mg BID -Lisinopril 5mg qAM -Will attempt to up-titrate BB and SHANNON as blood pressure allows -Lipid panel with TG 542, Total Cholesterol 207, LDL unable to calculate due to TG level. -HgbA1C 10.8% -Cardiac Rehab consult placed DM2 -Patient only on Glimepiride in outpatient setting, will hold while inpatient -Has been on Metformin and Januvia in the past and stopped both due to side effects -SSI for initial coverage -HgbA1c at 10.8% -assistant health educator assisting with patient education -Of note patient recently signing up for weight loss program and trying to be more mindful of food choices -Would want to add on further therapy outpatient, consider GLP-1 RA -If patient staying longer, will add on basal insulin while inpatient. Leukocytosis -Likely secondary to acute LA -Low suspicion for infectious cause. -Continue to monitor for signs of infectious etiology including fever, tachycardia, obvious source HTN -Lisinopril and Metoprolol as above Dispo: PCU FEN: NPO in anticipation cardiac cath later today DVT: Ticagrelor 90 BID Code: Full Admission and Anticipated Discharge Date Admission Date: April 01, 2020 Supervising Physician Co-Signing Physician Notes I personally examined the patient and verified all dugan points of history and exam, discussed case, and agree with decision making with Dr Mckeon. ongoing chest pain post cath. 11/08. conversational during this though. discussed lifestyle. notes that he's recently started "GoLo" program, but conversely as we review diet he notes that while he just started GoLo about 2 weeks ago, he denies any real changes in his eating for months. also notes erratic sugars, but has a fairly low supply of recall of these erratic situations. notes that he needs to exercise more vitals noted nad heent nc at mmm breathing unlabored no accessory muscles good effort skin no rashes no pallor or icterus EKG NSR at bedside, repeat done (actually once symptoms improved) with a little bit of recurrence of ST elevations inferior but not as pronounced, and no reciprocal changes STEMI - post cath/stenting/extensive procedures. med management, symptom control. if CP recurs - then heparin gtt metabolic syndrome (DM2, low HDL/high TG dyslipid) - extensive discussion on lifestyle/educated as best he would allow. will have to research his GoLo - concerned that it might contain stimulants that, while not causative of his CAD, could be part of the "why now" precipitating his LA time in ~440p, time out ~525p, >30mins face to face Subjective Patient examined at the bedside this morning. Patient noting that since his heart cath last night he has had minimal 1/10 on and off chest pain that he primarily noted while trying to push himself into a seated position. Currently he notes that he is not having any discomfort at all, does not feel short of breath, and is able to move from the laying to seated position without becoming short of breath. He notes 10 year pack history, but quit in 2000. Also notes that his father had an LA at age 58. He states that he feels his sugars have been fairly uncontrolled and that he has only been taking glimepiride for it. He has no other questions or concners at this time. Review of Systems Constitutional: no fever and no chills Eyes: no photophobia and no worsening vision Ear, Nose, Mouth, Throat: no dizziness Respiratory: no cough, no dyspnea, no dyspnea on exertion and no pain on inspiration Cardiovascular: + chest pain and + dyspnea on exertion; no chest pain at rest, no radiating jaw, neck or arm pain and no dyspnea Gastrointestinal: no abdominal pain, no nausea, no vomiting, no constipation and no diarrhea/loose stools Genitourinary: no dysuria Physical Exam Constitutional: WD/WN, vitals as above + obese Eyes: PERRL, conjunctivae normal, anicteric sclerae ENMT: external ear and nose normal, oropharynx normal Neck: trachea midline, no thyromegaly Respiratory: normal respiratory effort, lungs clear to auscultation Cardiovascular: Rate/Rhythm: regular rate and regular rhythm Heart Sounds: no murmur Vessels: posterior tibial pulses present, dorsalis pedis pulses present, radial pulses present and ulnar pulses present Gastrointestinal (Abdomen): normal bowel sounds, soft, nontender, no hepatosplenomegaly Skin: no rashes, warm and dry Neurologic: PERRL, EOMI, accommodation nl, no face palsy, no dysarthria Psychiatric: A+Ox3, euthymic affect Results & Data Results & Data ([facility]) Vital Signs (Past 12 Hours) Vital Signs Temp Pulse Pulse Resp BP Pulse Ox 04/02/20 05:03 36.9 C 75 18 98/66 L 93 04/02/20 00:51 73 18 97/61 L 92 04/02/20 00:15 78 18 110/75 92 04/01/20 23:35 37.1 C 75 18 105/73 93 04/01/20 23:30 73 04/01/20 23:05 75 18 104/70 96 04/01/20 21:33 77 18 125/86 97 04/01/20 21:31 36.9 C 72 18 110/74 94 04/01/20 21:26 36.9 C 75 18 129/73 94 Resident Activity Tracking Resident Involvement: Resident Care Provided Care Provided: Adult Hospital Medicine
[2020-04-02 08:11] LABS: Estimated Average Glucose 263 mg/dl; Hemoglobin A1C 10.8 % (4.5-5.6)
[2020-04-02] MEDS: METOPROLOL TARTRATE 25 MG TAB PO SCH ×2 (08:16→21:08)
[2020-04-02] MEDS: ASPIRIN 81 MG ECTAB PO SCH (08:16)
[2020-04-02] MEDS: ATORVASTATIN 40 MG TAB PO SCH (08:16)
[2020-04-02] MEDS: lisinopril 5 MG TAB PO SCH (08:16)
[2020-04-02] MEDS: TICAGRELOR 90 MG TAB PO SCH ×2 (08:17→21:08)
[2020-04-02] MEDS: INSULIN ASPART 100 UNITS/ML 3 ML PEN SC SCH ×4 (08:22→21:08)
--- NOTE | 2020-04-02 09:01 | XCELERA ---
[id number]
[2020-04-02] MEDS ORDERED: niCARdipine HCL INJ 2.5 MG/ML 10 ML AMP ONE (11:46)
[2020-04-02] MEDS ORDERED: MIDAZOLAM HCL 1 MG/ML 2ML VIAL ONE (11:46)
[2020-04-02] MEDS ORDERED: HEPARIN (PORCINE) 1000 UNIT/ML 10 ML (CATH LAB USE ONLY) ONE ×2 (11:46→13:09)
[2020-04-02] MEDS ORDERED: fentaNYL citrate 100 MCG/2 ML VIAL ONE (11:46)
[2020-04-02] MEDS ORDERED: NITROGLYCERIN/D5W 100MCG/ML 20ML SYR ONE (11:47)
--- NOTE | 2020-04-02 14:17 | Electrocardiogram Report ---
Test Reason : Blood Pressure : / mmHG Vent. Rate : 089 BPM Atrial Rate : 089 BPM P-R Int : 158 ms QRS Dur : 096 ms QT Int : 380 ms P-R-T Axes : 050 -23 013 degrees QTc Int : 462 ms Normal sinus rhythm Cannot rule out , age undetermined Abnormal ECG No previous ECGs available Confirmed by Aiden Barnard ([id number]) on 04/02/2020 2:17:25 PM Referred By: REFERRED SELF Confirmed By:Aiden Barnard
--- NOTE | 2020-04-02 14:18 | Pre Anesthesia Assessment ---
Date of Service April 02, 2020 Pre Sedation Assessment Vital Signs Temp Pulse Pulse Resp BP BP Pulse Ox 04/02/20 11:30 79 16 118/71 94 04/02/20 08:10 97.9 F 78 17 107/71 94 04/02/20 05:03 98.4 F 75 18 98/66 L 93 04/02/20 00:51 73 18 97/61 L 92 04/02/20 00:15 78 18 110/75 92 04/01/20 23:35 98.8 F 75 18 105/73 93 04/01/20 23:30 73 04/01/20 23:05 75 18 104/70 96 04/01/20 21:33 77 18 125/86 97 04/01/20 21:31 98.4 F 72 18 110/74 94 04/01/20 21:26 98.4 F 75 18 129/73 94 04/01/20 19:50 91 H 22 179/108 H 97 04/01/20 19:46 88 187/111 H 04/01/20 19:40 93 H 18 187/111 H 97 04/01/20 19:30 93 H 14 165/103 H 04/01/20 19:27 91 H 19 172/101 H 96 04/01/20 19:00 80 26 H 147/97 H 96 04/01/20 18:30 86 26 H 172/93 H 95 04/01/20 18:00 86 16 154/93 H 04/01/20 17:44 88 16 161/88 H 04/01/20 17:35 97.5 F L 94 H 18 172/115 H 96 Cardiovascular RRR, no murmur, no edema Respiratory normal respiratory effort, lungs clear to auscultation Pre-Sedation Airway Assessment Smoking Status: Former smoker Hx Sleep Apnea: No Hx Difficult Intubation: No Short, Thick Neck: No Thyromental Distance: > or= 3.5 Finger Breadths Oral Cavity: + WNL Mallampati Class: III ASA: ASA3 NPO Status Date of Last Intake of Fluids: 03/31/20 Time of Last Intake of Fluids: 22:00 Date of Last Intake of Solid Food: 03/31/20 Time of Last Intake of Solid Foods: 22:00 Procedure Planning Contraindications for Sedation: none Current Medications Reviewed: Yes Notes The planned sedation has been discussed with the patient. Informed Consent was obtained. I have identified the patient, determined the appropriateness of sedation and have assessed the patient immediately prior to the procedure. All medicine(s) and interventions are by my order.
--- NOTE | 2020-04-02 14:19 | Post Anesthesia Assessment ---
Date of Service April 02, 2020 Post Sedation Assessment Vital Signs Temp Pulse Pulse Resp BP BP Pulse Ox 04/02/20 11:30 79 16 118/71 94 04/02/20 08:10 97.9 F 78 17 107/71 94 04/02/20 05:03 98.4 F 75 18 98/66 L 93 04/02/20 00:51 73 18 97/61 L 92 04/02/20 00:15 78 18 110/75 92 04/01/20 23:35 98.8 F 75 18 105/73 93 04/01/20 23:30 73 04/01/20 23:05 75 18 104/70 96 04/01/20 21:33 77 18 125/86 97 04/01/20 21:31 98.4 F 72 18 110/74 94 04/01/20 21:26 98.4 F 75 18 129/73 94 04/01/20 19:50 91 H 22 179/108 H 97 04/01/20 19:46 88 187/111 H 04/01/20 19:40 93 H 18 187/111 H 97 04/01/20 19:30 93 H 14 165/103 H 04/01/20 19:27 91 H 19 172/101 H 96 04/01/20 19:00 80 26 H 147/97 H 96 04/01/20 18:30 86 26 H 172/93 H 95 04/01/20 18:00 86 16 154/93 H 04/01/20 17:44 88 16 161/88 H 04/01/20 17:35 97.5 F L 94 H 18 172/115 H 96 Recovery Score Activity: Moves 4 extremities Respiration: Deep Breath/Cough Circulation: +/-20% PreAnes Value Consciousness: Fully Awake Oxygen Saturation: O2 needed for >90% Discharge Sedation Level of Care: Fast Track Phase II Post Sedation Plan On clinical assessment, the patient appears to have tolerated the sedation without complications. Patient is recovering as anticipated. Patient will continue to be monitored by nursing and may be discharged when sedation discharge criteria are met per below protocol. Upon Completions of procedure up to 15 minutes continue every 5 minute vital s igns and the P.A.R. score; then discharge to a Phase I or Fast Track to Phase II per the following guidelines: * Discharge Patient to appropriate Phase II area if PAR is 8 or greater or return to pre- procedure baseline. The post - procedure orders will be as directed. * If PAR score is less than 8 or not return to pre-procedure baseline then patient will follow Phase I monitoring till PAR is reached for Phase II. The Phase I may be done in procedure room or may call to secure a Phase I area. * If naloxone or flumazenil are used for reversal, hold in Phase I for continued monitoring from when last reversal dose was given for a minimum of 60 minutes or longer pending the nurse and/or physician discretion of patient condition before discharge to Phase II. Please call the Sedation Physician to re-evaluate and complete post-note for discharge to Phase II area. Do NOT discharge from procedure sedation or Phase 1 until post- sedation evaluation note is complete by procedure /sedation MD Sedation Discharge Instructions to be given to the patient at discharge to home.
--- NOTE | 2020-04-02 14:24 | Electrocardiogram Report ---
Test Reason : Blood Pressure : / mmHG Vent. Rate : 089 BPM Atrial Rate : 089 BPM P-R Int : 194 ms QRS Dur : 108 ms QT Int : 398 ms P-R-T Axes : 066 -22 001 degrees QTc Int : 484 ms Normal sinus rhythm Inferior infarct , possibly subacute Abnormal ECG When compared with ECG of 01-APR-2020 17:42, (unconfirmed) No significant change was found Confirmed by Aiden Barnard ([id number]) on 04/02/2020 2:23:55 PM Referred By: REFERRED SELF Confirmed By:Aiden Barnard
--- NOTE | 2020-04-02 14:24 | Cardiac Catheterization ---
[facility] Data: Physicians Assistant Cardiac Status Clinical evaluation leading to the procedure CAD Presenation: Non STEMI Anginal Classification: CCS IV Heart Failure: No Cardiogenic Shock within 24 Hours: No Cardiac Arrest within 24 Hours: No Imaging Studies Past 6 Months: Yes Stress Studies Past 6 Months: No Diagnostic Physicians Name: Zelalem Sánchez MD Status: Elective Closure Device Percutaneous Entry Location: Radial Closure Device: Radial Band Recommendations: PCI without planned CABG PCI Indication: Staged PCI Lesion Segment Name: Proximal to mid LAD Culprit Artery: No Stenosis Prior to Rx (%): 80 Chronic Total Occlusion: No IVUS: Yes FFR: No Pre-Procedure SALAZAR Flow: 3 Previously Treated Lesion: No Lesion Complexity: High/C Lesion Length (mm): 30 Thrombus Present: No Bifurcation Lesion: Yes Guidewire Across Lesion: Stenosis Post-Procedure (%): 0 Post-Procedure SALAZAR Flow: 3 Devices(s) Deployed: Yes Yes Intraprocedure Events Significant Disection: No Perforation: No Cardiac Cath Procedure Full Procedure Date April 02, 2020 Pre-Procedure Diagnosis Pre-Procedure Diagnosis: Non STEMI AUC Score AUC Score: 7 Post-Procedure Diagnosis Post-Procedure Diagnosis: Severe CAD and Successful PCI Procedure(s) Performed Procedure(s) Performed: Coronary Angiography, Drug Eluting Stent and IVUS Administrative Assistant Front Desk Zelalem Sánchez MD Valver(s) Jeyson Estimated Blood Loss Estimated Blood Loss: 15 Medication(s) Medication(s): Fentanyl, Heparin, Lidocaine 1%, Nicardipine, Nitroglycerin and Versed Medication(s): Ticagrelor Summary of Findings Indication: Staged PCI of LAD Access: 6 Fr right radial artery Catheters: EBU 3.5 guide -- PCI -- Antithrombotic therapy: Heparin, ticagrelor Procedure: Left main cannulated with EBU 3.5 guide Rn Complex Care 50 wire placed into first diagonal BMW wire placed into distal LAD Whisper wire placed into large first septal Ostium of first diagonal dilated with 2.0 balloon Ostium of first septal dilated with 2.0 balloon [place] IVUS catheter placed into mid LAD. Pullback revealed severe mid segment disease, moderate concentric calcification with disease extending back to takeoff of first diagonal and to ostium of LAD. Left main without significant disease. Single drug-eluting stent (3.0 x 34 mm Beemer) placed from ostium of LAD into mid LAD across takeoff of first diagonal and first septal. Post stent deployment loss of flow and septal Septal rewired with commercial airplane pilot 50 wire and ostium dilated with 2.0 balloons with reestablish flow Repeat [place] IVUS revealed underexpanded stent in the midsegment Stent postdilated with 3.5 NC After post dilation again lost flow and first septal Septal was rewired and again dilated with 2.0 balloon with reestablished flow. Residual severe ostial stenosis in first diagonal but SALAZAR-3 flow IC vasodilators administered for spasm Post procedure SALAZAR 3 flow, stent well expanded with minimal residual stenosis. Arterial Closure: TR band Summary: 1. Successful PCI of ostial to mid LAD with single drug-eluting stent (3.0 x 34 mm Beemer; postdilated with 3.5 NC). -PTCA of large first septal with 2.0 balloon -PTCA of high first diagonal with 2.0 balloon Residual severe ostial stenosis in D1 and 1st septal but SALAZAR-3 flow throughout LAD system. Recommendations: To PCU for continued monitoring Continue dual-antiplatelet therapy for at least 1 year If in the future were to have refractory exertional anginal symptoms possible PCI with stenting to D1 could be considered. Hemodynamics Rest Ao:: 85/60/70 Final Ao: 104/72/86 LV: -- Recommendations Recommendations: PCI without planned CABG Specimens Specimens: None Radiation Exposure (mGy) 6733-patient counseled on signs and symptoms of radiation toxicity Contrast (mls) 175 Fluids (cc crystalloids) Fluids (cc crystalloids): 507 Drains Drains: none Anesthesia moderate Procedural Complication(s) None Disposition PCU I attest to the content of the Intraoperative Record and any orders documented therein. Any exceptions are noted below. [facility] Card Cath Procedure Codes Therapeutic Services & Ancillary Proc Procedure 1: Cardiovascular Tx and Anc Procedures: 69942 IV Ultrasound (Coronary or Graft) Moderate Sedation Procedure 1: Sedation/Anesthesia: 81937 Mod Sedation by a different physician ;Init15 Min Child Age 5&Up Procedure 2: Sedation/Anesthesia: 99359 Mod Sedation by the same physician; Ea [id number] Minutes Stenting Procedure 1: Cardiovascular Stent Procedures: 24211 Perc transcatheter placement of intracoronary stent(s), with ang PG Care Time/CCT Total # of Minutes Spent Total Time Spent with Patient: Total time spent is greater than 50% in coordin ation of care (as documented) at patient's floor/unit and/or counseling patient:
--- NOTE | 2020-04-02 14:25 | Electrocardiogram Report ---
Test Reason : Blood Pressure : / mmHG Vent. Rate : 069 BPM Atrial Rate : 069 BPM P-R Int : 160 ms QRS Dur : 102 ms QT Int : 424 ms P-R-T Axes : 049 -27 000 degrees QTc Int : 454 ms Poor data quality, interpretation may be adversely affected Normal sinus rhythm Inferior infarct , age undetermined Abnormal ECG When compared with ECG of 01-APR-2020 19:43, (unconfirmed) Serial changes of evolving Inferior infarct Confirmed by Aiden Barnard ([id number]) on 04/02/2020 2:25:07 PM Referred By: REFERRED SELF Confirmed By:Aiden Barnard
--- NOTE | 2020-04-02 14:29 | Electrocardiogram Report ---
Test Reason : Blood Pressure : / mmHG Vent. Rate : 076 BPM Atrial Rate : 076 BPM P-R Int : 162 ms QRS Dur : 092 ms QT Int : 390 ms P-R-T Axes : 074 -21 070 degrees QTc Int : 438 ms Normal sinus rhythm Inferior ST abnormality When compared with ECG of 01-APR-2020 21:22, (unconfirmed) T wave inversion no longer evident in Inferior leads Confirmed by Aiden Barnard ([id number]) on 04/02/2020 2:29:17 PM Referred By: REFERRED SELF Confirmed By:Aiden Barnard
[2020-04-02] MEDS ORDERED: MoRPHine SULFATE 2 MG/ML CARP IV STA (16:48)
[2020-04-02] MEDS ORDERED: ACETAMINOPHEN 325 MG TAB PO STA (16:48)
--- NOTE | 2020-04-02 18:32 | Billing Data ---
Date of Service April 02, 2020 Coding Level of Care Code 34467 Prolonged Care (int'l)
--- NOTE | 2020-04-02 18:32 | Billing Data ---
Date of Service April 02, 2020 Coding Level of Care Code 12424 Subseq Hosp Care Lvl 3
[2020-04-02 21:53] LABS: Basophils # (auto) 0.05 K/uL (0-0.2); Basophils % (auto) 0.3 %; Eosinophils % (auto) 0.7 %; Hematocrit (blood only) 39.9 % (42-52); Hemoglobin 13.7 g/dL (14.0-18.0); Immature Granulocytes # (auto) 0.06 K/uL (0.00-0.02); Immature Granulocytes % (auto) 0.4 %; Lymphocytes # (auto) 2.33 K/uL (1.2-3.4); Lymphocytes % (auto) 16.1 %; Mean Corpuscular Hemoglobin 30.2 pg (25-34); Mean Corpuscular Hgb Conc 34.3 g/dL (32-36); Mean Corpuscular Volume 88.1 fL (80-100); Mean Platelet Volume 9.9 fL (7.4-10.4); Monocytes # (auto) 1.85 K/uL (0.11-0.59); Monocytes % (auto) 12.8 %; Neutrophils # (auto) 10.09 K/uL (1.4-6.5); Neutrophils % (auto) 69.7 %; Platelet Count 317 K/uL (130-400); RDW Coefficient of Variation 13.1 % (11.5-14.5); RDW Standard Deviation 42.2 fL (36.4-46.3); Red Blood Count 4.53 M/uL (4.7-6.1); White Blood Count 14.48 K/uL (4.8-10.8)
[2020-04-02 22:11] LABS: Calcium 8.8 mg/dl (8.5-10.1); Creatinine Clr Calc Pharmacy 92.2 ml/min; Est GFR (African American) 77.5; Est GFR (Non-African American) 66.9; Potassium 4.3 mmol/L (3.5-5.1)
--- NOTE | 2020-04-03 00:17 | Cardiology Progress Note ---
Date of Service April 03, 2020 Assessment & Plan (1) NSTEMI (non-ST elevated myocardial infarction): Post PCI to occluded right posterior AV branch with single TY -Post staged PCI to proximal mid LAD with angioplasty D1, first septal 2. Preserved LV function with inferior, inferolateral hypokinesis. 3. Type 2 [id number] 10.8 4. Dyslipidemia 5. Hypertensionmoderate LVH on echo Patient currently chest pain-free this evening. Suspect earlier chest pain secondary to residual stenosis involving first septal. Recommend additional nitrates, morphine if recurrent pain. If refractory pain and no ECG changes could consider restarting heparin. Contact Dr. Sánchez if refractory pain and ECG changes. Continue DAPT with aspirin, ticagrelor Continue current metoprolol, lisinopril and high intensity statin. diabetic educator note reviewed. Agree with GLP-1 or SGLT2 inhibitor as an outpatient If remains chest pain-free likely could go home tomorrow. Admission and Anticipated Discharge Date Admission Date: April 01, 2020 Subjective Patient underwent complex LAD PCI earlier today. Was seen this evening post procedure. Reported that he had some moderate chest discomfort reminiscent of what he had prior to hospitalization earlier in the afternoon. Symptoms resolved after Tylenol, morphine. Now chest pain-free. Minimal pain at right radial artery access site Review of Systems Review of Systems: All systems reviewed & are unremarkable except as noted in HPI & below Physical Exam Physical Exam: General: Comfortable, no acute distress HEENT: Sclerae anicteric Lungs: Clear to auscultation bilaterally Cardiac: Regular rate and rhythm, no murmurs Abdomen: Soft, nontender Extremities: Warm, well perfused, no edema. TR band in place, palpable pulse distal. No significant ecchymosis or hematoma. Neuro: Nonfocal Psych: Alert orient x3, normal affect and mood Results & Data ([facility]) Vital Signs (Past 12 Hours) Vital Signs Temp Pulse Resp BP Pulse Ox 04/02/20 19:23 98.8 F 86 16 94/61 L 93 04/02/20 18:30 97.7 F 86 16 94/62 L 93 04/02/20 17:00 97.9 F 81 20 115/81 04/02/20 16:30 97.7 F 78 16 124/86 92 04/02/20 16:00 98.6 F 75 16 115/82 91 04/02/20 15:31 98.6 F 79 20 91/60 L 93 04/02/20 14:45 98.4 F 76 16 108/76 92 04/02/20 14:30 79 18 108/79 93 04/02/20 14:15 87 18 114/77 97 PG Care Time/CCT Total # of Minutes Spent Total Time Spent with Patient: Total time spent is greater than 50% in coordination of care (as documented) at patient's floor/unit and/or counseling patient: Coding Level of Care Code 28900 Subseq Hosp Care Lvl 3 Diagnoses NSTEMI (non-ST elevated myocardial infarction) I21.4
--- NOTE | 2020-04-03 07:22 | Hospitalist Progress Note ---
Date of Service April 03, 2020 Assessment & Plan Admission and Anticipated Discharge Date Admission Date: April 01, 2020 Results & Data Results & Data ([facility]) Vital Signs (Past 12 Hours) Vital Signs Temp Pulse Pulse Resp BP Pulse Ox 04/03/20 03:49 36.8 C 84 16 115/77 91 04/03/20 01:30 80 04/03/20 00:34 36.3 C L 90 16 105/68 92 04/02/20 19:23 37.1 C 86 16 94/61 L 93
[2020-04-03] MEDS: ATORVASTATIN 40 MG TAB PO SCH (08:13)
[2020-04-03] MEDS: METOPROLOL TARTRATE 25 MG TAB PO SCH (08:13)
[2020-04-03] MEDS: lisinopril 5 MG TAB PO SCH (08:13)
[2020-04-03] MEDS: ASPIRIN 81 MG ECTAB PO SCH (08:14)
[2020-04-03] MEDS: TICAGRELOR 90 MG TAB PO SCH (08:14)
[2020-04-03] MEDS: INSULIN ASPART 100 UNITS/ML 3 ML PEN SC SCH ×2 (08:15→11:51)
[2020-04-03 11:56] LABS: BUN Creatinine Ratio 26.8 (10-20); Calcium 8.7 mg/dl (8.5-10.1); Creatinine Clr Calc Pharmacy 117.9 ml/min; Est GFR (African American) 104.3; Potassium 4.2 mmol/L (3.5-5.1)
--- NOTE | 2020-04-03 13:09 | Discharge Summary ---
Date of Service April 03, 2020 Admission HPI Per Admitting Provider 49 yo M PMHx DM2 presents for chest pain. Per patient he started having aching severe chest pain at 10pm last evening, could not get comfortable, but it went away. It came back this AM and after it had not gone away after an hour he checked his BP and noted himself to have diastolic BP over 100. Because of this he decided to be evaluated in ER. In ER he was noted to have EKG without ST elevations, initial troponin 35, HTN to 170/110. He received Lopressor 5mg IV x1, nitro, high dose aspirin, and morphine x2 with significant relief (though not resolution) of his pain. Heart alert called, and taken to labor relations representative emergently by Dr. Sánchez. There he was noted to have 100% occlusion of right posterior AV branch immediately after takeoff of PDA, as well as severe non-culprit coronary artery disease (specifically, 90% stenosis of mid LAD). TY x1 placed at PDA takeoff, with plan for staged PCI of LAD. On my exam (which occurred prior to PCI, but after morphine and Lopressor) patient reported significant improvement in pain, and no complaints of SOB, sweating, abdominal pain, nausea, dizziness, headache. Admission Exam Per Admitting Provider Constitutional: WD/WN, vitals as above Eyes: PERRL, conjunctivae normal, anicteric sclerae ENMT: external ear and nose normal, oropharynx normal Neck: normal visual inspection Respiratory: normal respiratory effort, lungs clear to auscultation Cardiovascular: RRR, no murmur, no edema Gastrointestinal (Abdomen): normal bowel sounds, soft, nontender, no hepatosplenomegaly Musculoskeletal: No cyanosis or clubbing Skin: no rashes, warm and dry Neurologic: AAOx3, normal speech. PERRL. Bilateral UE, LE, and face without sensory or motor deficits. No tremor. Psychiatric: A+Ox3, euthymic affect Principal Diagnosis STEMI Discharge Exam Constitutional WD/WN, vitals as above + obese Eyes PERRL, conjunctivae normal, anicteric sclerae ENMT external ear and nose normal, oropharynx normal Neck trachea midline, no thyromegaly Respiratory normal respiratory effort, lungs clear to auscultation Cardiovascular Rate/Rhythm: regular rate and regular rhythm Heart Sounds: no murmur Vessels: posterior tibial pulses present, dorsalis pedis pulses present, radial pulses present and ulnar pulses present Gastrointestinal (Abdomen) normal bowel sounds, soft, nontender, no hepatosplenomegaly Skin no rashes, warm and dry Neurologic PERRL, EOMI, accommodation nl, no face palsy, no dysarthria Psychiatric A+Ox3, euthymic affect Discharge Data Allergies Allergy/AdvReac Type Severity Reaction Status Date / Time metformin Allergy Severe SEVERE Verified 04/01/20 18:10 DIARRHEA Consultations 04/01/20 19:27 ED Decision to Admit Stat 04/01/20 21:26 Consult Cardiac Rehabilitation Routine 04/03/20 12:00 Consult [facility] automatic chief Routine Procedures Performed Operation Date: 04/01/20 19:45 Actual Procedures p Cath, Left with Cors and Vent - Fernando Sánchez MD s Cineradiography w/Routine Exam - Fernando Sánchez MD s Drug Eluting Stent SGl Vessel - Fernando Sánchez MD Operation Date: 04/02/20 11:45 Actual Procedures p Cath, Left with Cors and Vent - Fernando Sánhcez MD s Cineradiography w/Routine Exam - Fernando Sánchez MD s Drug Eluting Stent SGl Vessel - Fernando Sánchez MD s IVUS Coronary Single Vessel - Fernando Sánchez MD Ordered Studies 04/01/20 19:44 CL Cath Imgs for PACS use only Stat 04/02/20 11:37 CL Cath Imgs for PACS use only Stat 04/02/20 15:06 CL IVUS Coronary Single Vessel Routine Diabetes Follow up Diabetes Follow-up Needed for HgbA1c >9% Hospital Course (1) Acute MT: Patient is a 49 year old male with PMHx DM2 that presented initially with chest pain of 20 hours duration that was centralized in location, found to have an elevated troponin of 35 on admission at which time a heart alert was activated and patient underwent PCI x1 of his R posterior AV branch and transferred to PCU for monitoring. STEMI -Second EKG showing ST-T wave elevations of III and AVF with reciprocal change in St depression of leads I and aVL. -Troponin on admission 35 --> 60 --> 27 -In ED a heart alert was called, given Tylenol, nitro, IV morphine, and started on a heparin gtt with bolus -Patient underwent PCI x1 of R posterior AV branch on 04/01/20 and Proximal to mid LAD x1 on 04/02/20 -Echo with EF 60-65% with mild hypokinesis of mid inferior and inferolateral portions of the heart -Continue Dual-Antiplatelet therapy x1 year, ASA 81mg QD and Ticagrelor 90mg PO BID -Sublingual Nitro PRN -Morphine PRN pain -O2 PRN, patient did not require -High Dose Statin Atorvastatin 80mg QAM -Metoprolol Tartrate 25mg BID -Lisinopril 5mg qAM -Lipid panel with TG 542, Total Cholesterol 207, LDL unable to calculate due to TG level. -HgbA1C 10.8% -Cardiac Rehab consult placed -Follow up with cardiology in 1 week -Follow up with PCP in 1 week. DM2 -Patient only on Glimepiride in outpatient setting, will hold while inpatient -Has been on Metformin and Januvia in the past and stopped both due to side effects -SSI for initial coverage while inpatient -HgbA1c at 10.8% -certified breastfeeding educator assisting with patient education -Of note patient recently signing up for weight loss program and trying to be more mindful of food choices -Would want to add on further therapy outpatient, consider GLP-1 RA, patient interested in starting Ozempic. Leukocytosis -Likely secondary to acute MT -Low suspicion for infectious cause. -Monitored for signs of infectious etiology including fever, tachycardia, obvious source HTN -Lisinopril and Metoprolol as above Total Time Total Time Spent Total Time Spent (In Minutes): <30 Discharge Plan Discharge Items Patient Disposition: Home - Self-Care Reason For Visit: CHEST PAIN, HIGH BP Discharge Diagnosis: STEMI s/p 1x stent R posterior AV branch and 1x proximal mid LAD Condition on Discharge: Good Activity: Per Instructions section Non-emergency contact: Primary Care Provider and Parcel Carrier Call non-emergency contact if: you have any medication questions Follow-up/Referrals: Fernando Sánchez MD [Physician] - 04/11/20 10:00 am (Please follow up with Dr. Sánchez on 04/11/20 at 10:00 am. Please arrive to the office 15 minutes early for your appointment. If you are unable to keep this appointment, please call the office to reschedule at [phone]. If any medical questions can contact Dr. Sánchez directly at [phone]) Farzana Jaquez CRNP [Primary Care Provider] - 04/10/20 1:00 pm (MICHELLE Crow is unavailable. Please follow up with Dr. Love on Wednesday04/10/20 at 1:00 pm. Please arrive to the office 15 minutes early for your appointment. If you are unable to keep this appointment, please call the office to reschedule at [phone].) Desean Mckeon DO [Resident] - Diet: Heart Healthy Addtl Attending Provider Instructions: Mr. Lepe, It was our pleasure caring for you at [facility] from 04/01 - 04/03/20 for your heart attack. Please see below for future instructions. STEMI/Heart Attack -On your admission you had come in with chest pain and lab values concerning for a heart attack -You were evaluated by our Parcel Carrier Dr. Sánchez and were taken to the Civil Attorney for intervention -You had a total of 2 stents placed in your heart, please remember to keep a copy of your stent card with you. -You were also started on specific medications in regards to preventing future heart attacks and lessening the effects of your current -Please continue to take your medications as prescribed: -Aspirin 81mg 1 tablet by mouth daily -Brilinta 90mg by mouth twice a day -Metoprolol Tartrate 25mg by mouth twice a day -Lisinopril 5mg by mouth once a day -Atorvastatin 80mg by mouth once a day -Nitroglycerin sublingual 0.4mg sublingual as needed, see instructions. -Please follow up with your PCP in the next week -Please follow up with Cardiology in one week. Diabetes Mellitus 2 -While inpatient we had discussed in regards to watching your diet and accurately determining how many carbs you were taking in -We also discussed continuing to take your sugars to get an accurate gauge of how your sugars had been running -On discharge please resume your home medication Glimepiride as prescribed -We had also discussed addition of Ozempic, please discuss this with your PCP at your follow up visit. -If you have any further questions please contact your christian science practitioner or PCP. -If your symptoms recur, please return to the ED for reevaluation. Pending Studies at Discharge: No Stand-Alone Forms: My [facility], Smoking Cessation Medications and DC Order Prescriptions: New atorvastatin 40 mg Tablet 80 mg PO QAM 30 Days Qty: 60 RF: 2 aspirin 81 mg Tablet,Delayed Release (Dr/Ec) 81 mg PO QAM 30 Days Qty: 30 RF: 3 nitroglycerin [Nitrostat] 0.4 mg Tablet, Sublingual 0.4 mg sublingual UD PRN (Reason: chest pain) 30 Days Qty: 30 RF: 2 lisinopril [Zestril] 5 mg Tablet 5 mg PO QAM 30 Days Qty: 30 RF: 2 metoprolol tartrate 25 mg Tablet 25 mg PO BID 30 Days Qty: 60 RF: 2 Brilinta 90 mg Tablet 90 mg PO BID 30 Days Qty: 60 RF: 2 Continued Antibiotic Eye Drops 1 drp ophthalmic (eye) Q3H RF: 0 glimepiride 2 mg Tablet 0 mg PO DAILY RF: 0 Mulitiple Suppliments 1 dose PO DAILY RF: 0 Discharge Orders: Discharge Order (Routine); Ordered 04/03/20 Ordered By: Desean Latif/Other Patient Handouts: Healthy Meals for Diabetes, Heart Attack Dc, Heart Attack Meds Admission Data Admit Date/Time: 04/01/20 21:14 Attending Provider: Virgilio Corley Admit Provider: Fernando Sánchez Primary Care Provider: Farzana Jaquez Other Providers: Gómez Doll Other Interventions: Discharge Summary Assessment (RN) Last Done: 04/03/20 13:41 Supervising Physician Co-Signing Physician Notes I personally examined the patient and verified all dugan points of history and exam, discussed case, and agree with decision making with Dr Mckeon feeling better feeling up to going home vitals noted nad heent nc at mmm breathing unlabored no accessory muscles good effort STEMI - post multiple stents. med management, lifestyle management uncontrolled DM2 - add GLP as outpt, ongoing lifestyle management (and evaluation) (he will stop the GoLo supplements) otherwise as above Resident Activity Tracking Resident Involvement: Resident Care Provided Care Provided: Adult Hospital Medicine
--- NOTE | 2020-04-03 15:20 | Cardiology Progress Note ---
Date of Service April 03, 2020 Assessment & Plan (1) NSTEMI (non-ST elevated myocardial infarction): Post PCI to occluded right posterior AV branch with single TY -Post staged PCI to proximal mid LAD with angioplasty D1, first septal 2. Preserved LV function with inferior, inferolateral hypokinesis. 3. Type 2 [id number] 10.8 4. Dyslipidemia 5. Hypertensionmoderate LVH on echo Patient stable from a cardiac standpoint. Repeat BMP this morning shows stable renal function From a cardiac standpoint okay with discharge today. Follow-up with me in 1 week. Continue DAPT with aspirin, ticagrelor Continue current metoprolol, lisinopril and high intensity statin. Agree with GLP-1 or SGLT2 inhibitor as an outpatient Admission and Anticipated Discharge Date Admission Date: April 01, 2020 Subjective Feeling well this morning. No additional chest pain. Breathing comfortably. Telemetry reviewedbrief episode of SVT for approximately 15 seconds., Asymptomatic. No significant ventricular ectopy Review of Systems Review of Systems: All systems reviewed & are unremarkable except as noted in HPI & below Physical Exam Physical Exam: General: Comfortable, no acute distress HEENT: Sclerae anicteric Lungs: Clear to auscultation bilaterally Cardiac: Regular rate and rhythm, no murmurs Abdomen: Soft, nontender Extremities: Warm, well perfused, no edema. TR band in place, palpable pulse distal. No significant ecchymosis or hematoma. Neuro: Nonfocal Psych: Alert orient x3, normal affect and mood Results & Data ([facility]) Vital Signs (Past 12 Hours) Vital Signs Temp Pulse Resp BP Pulse Ox 04/03/20 13:41 98.4 F 67 20 113/63 94 04/03/20 11:30 98.4 F 67 20 113/63 94 04/03/20 07:54 98.6 F 64 18 109/67 99 04/03/20 03:49 98.2 F 84 16 115/77 91 PG Care Time/CCT Total # of Minutes Spent Total Time Spent with Patient: Total time spent is greater than 50% in coordination of care (as documented) at patient's floor/unit and/or counseling patient: Coding Level of Care Code 93539 Subseq Hosp Care Lvl 3 Diagnoses NSTEMI (non-ST elevated myocardial infarction) I21.4
--- NOTE | 2020-04-03 15:53 | Electrocardiogram Report ---
Test Reason : Blood Pressure : / mmHG Vent. Rate : 083 BPM Atrial Rate : 083 BPM P-R Int : 164 ms QRS Dur : 090 ms QT Int : 392 ms P-R-T Axes : 042 -33 026 degrees QTc Int : 460 ms Normal sinus rhythm Left axis deviation Inferior infarct , subacute Abnormal ECG When compared with ECG of 02-APR-2020 07:15, No significant change Confirmed by Aiden Barnard ([id number]) on 04/03/2020 3:52:30 PM Referred By: REFERRED SELF Confirmed By:Aiden Barnard
--- NOTE | 2020-04-03 16:06 | Electrocardiogram Report ---
Test Reason : Blood Pressure : / mmHG Vent. Rate : 085 BPM Atrial Rate : 085 BPM P-R Int : 158 ms QRS Dur : 100 ms QT Int : 388 ms P-R-T Axes : 055 005 026 degrees QTc Int : 461 ms Normal sinus rhythm Normal ECG When compared with ECG of 02-APR-2020 17:31, (unconfirmed) QRS axis Shifted right Borderline criteria for Inferior infarct are no longer Present Confirmed by Aiden Barnard ([id number]) on 04/03/2020 4:06:22 PM Referred By: REFERRED SELF Confirmed By:Aiden Barnard
--- NOTE | 2020-04-03 17:20 | Billing Data ---
Date of Service April 03, 2020 Coding Level of Care Code D/C Day Management <30 mins
--- NOTE | 2020-04-03 21:44 | Billing Data ---
Date of Service April 03, 2020 Coding Level of Care Code Critical Care 1st - mins
== END 2020-04-03 15:01 | disposition home or self-care (01) | DRG 247 ==
LOC: ED 17:24 → CC 20:05 → SUATTDRO 21:14 → 2S 21:14